=== PATIENT | male | born 1980 | race Caucasian/White ===

== ENCOUNTER 2018-08-18 11:23 | Day surgery (SDC) | payer OTHER | END 2018-08-18 16:05 | disposition home or self-care (01) | LOC: JASU-SURG 11:23 ==

== ENCOUNTER 2019-09-28 13:15 | Day surgery (SDC) | payer OTHER ==
[2019-09-28 10:05] VITALS: BMI 31.5
--- NOTE | 2019-09-28 16:07 | OP ---
Operative Note - Note: Operative Date: 09/28/19 Pre-Operative Diagnosis: Right renal stone Operation: Right ESWL Findings: 5 mm mid pole Right renal stone Post-Operative Diagnosis: Same as Pre-op Surgeon: Yandel Isaac Anesthesia: Regional Estimated Blood Loss (mls): 0 Operative Report Dictated: Yes
[2019-09-28 17:09] VITALS: TEMP 98
[2019-09-28 17:36] VITALS: BP 126/68; PULSE 65
--- NOTE | 2019-10-12 20:52 | OP ---
DATE OF OPERATION: 09/28/2019 PREOPERATIVE DIAGNOSIS: Right renal stone. POSTOPERATIVE DIAGNOSIS: Right renal stone. PROCEDURE: Right extracorporeal shock wave lithotripsy. ATTENDING: Keesha Solis MD ANESTHESIA: Fractional. DESCRIPTION OF OPERATION: Patient was brought in the operating room, placed in supine position on the operating room table. Ultrasonography and fluoroscopy were performed. A 5-mm right mid-pole stone was identified. At this point, anesthesia and preoperative antibiotics were administered. Shock wave lithotripsy was then performed. Excellent fragmentation of the stone was noted under real-time ultrasonography and fluoroscopy. The disposition of the patient was to the recovery room. KEESHA SOLIS M.D. /[id number]
== END 2019-09-28 17:45 | disposition home or self-care (01) ==
LOC: JASU-SURG 13:15
PROVIDERS: ATTEND Urology
PROC: 0TF3XZZ Fragmentation in Right Kidney Pelvis, External Approach (ICD-10-PCS; principal; 2019-09-28 15:15)
DX: N20.0 Calculus of kidney (principal)